=== PATIENT | male | born 1970 | race Caucasian/White ===

== ENCOUNTER → 2017-01-15 | Outpatient (CLI) | payer BC ==
[~2017-01-15] MED LIST: FISHOIL PO
[2017-01-15 13:32] LABS: ESTIMATED AVERAGE GLUCOSE 192 mg/dl; HA1C FLAG Normal (Normal)
[2017-01-15 14:03] LABS: BLOOD UREA NITROGEN 15 mg/dl (7-18); BUN/CREATININE RATIO 16.5 (10-20); CALCIUM 9.6 mg/dl (8.5-10.1); CARBON DIOXIDE 28 mmol/L (21-32); CHLORIDE 102 mmol/L (98-107); CHOLESTEROL 183 mg/dl (0-200); CHOLESTEROL/HDL RATIO 4.7; CREATININE 0.88 mg/dl (0.60-1.40); GLUCOSE 154 mg/dl (70-99); HDL CHOLESTEROL 39 mg/dl; LDL CHOLESTEROL CALCULATED 128 mg/dl; POTASSIUM 4.1 mmol/L (3.5-5.1); SODIUM 137 mmol/L (136-145); TRIGLYCERIDES 81 mg/dl (0-150); VERY LOW DENSITY LIPOPROT CALC 16 mg/dl
== END | disposition home or self-care (01) ==
LOC: C.LABPVFM 07:30
PROVIDERS: ATTEND Nurse Practitioner
DX: E11.9 Type 2 diabetes mellitus without complications (principal); E78.5 Hyperlipidemia, unspecified

== ENCOUNTER 2017-02-12 16:58 | Emergency (ER) | payer BC ==
[~2017-02-12] VITALS: Ht 175.3 cm; Wt 70.0 kg
[~2017-02-12 16:58] MED LIST changes: -FISHOIL PO; +METF-384 PO; +PRT/20 PO
[2017-02-12 17:02] VITALS: TEMP 36.6; Ht 175.3 cm; Wt 70.0 kg
[2017-02-12] MEDS ORDERED: ONDANSETRON INJ 2 MG/ML 2 ML VIAL IV STA (17:42)
[2017-02-12] MEDS ORDERED: OPTIRAY 320 IV PRN (17:45)
[2017-02-12 18:06] LABS: BASO % 0.4 %; HEMATOCRIT 40.8 % (42-52); IG% 0.2 %; LYMPH ABS # 2.29 K/uL (1.2-3.4); MEAN CELL VOLUME 85.9 fL (80-100); MEAN CORPUSCULAR HEMOGLOBIN 29.9 pg (25-34); MEAN CORPUSCULAR HGB CONC 34.8 g/dl (32-36); MEAN PLATELET VOLUME 9.7 fL (7.4-10.4); MONO % 7.5 %; NEUT % 66.9 %; PLATELET COUNT 304 K/uL (130-400); RED BLOOD COUNT 4.75 M/uL (4.7-6.1); WHITE BLOOD COUNT 9.55 K/uL (4.8-10.8)
[2017-02-12 18:07] LABS: BASO ABS # 0.04 K/uL (0-0.2); COMPLETE YES
[2017-02-12 18:08] LABS: URINE APPEARANCE CLEAR (CLEAR); URINE BILIRUBIN NEG (NEG); URINE COLOR YELLOW; URINE NITRITE NEG (NEG); URINE SPECIFIC GRAVITY 1.025 (1.000-1.030); UROBILINOGEN NEG (NEG); ZZUR CULT IF INDIC CLEAN CATCH NO
--- NOTE | 2017-02-12 18:12 | EMERGENCY ROOM VISIT NOTE ---
History Report prepared by Man: Teodoro Pelaez Under the Supervision of: Dr. Smith Milton M.D. First contact with patient: 17:30 Chief Complaint: ABDOMINAL PAIN Stated Complaint: SEVERE ABDOMINAL PAIN Nursing Triage Summary: pt to the ED with c/o diffuse abd pain all the way to his back was seen here 2 wks ago with something similar + nausea pain hurts more with movement no urinary complaints History of Present Illness The patient is a 46 year old male who presents to the Emergency Room with complaints of intermittent abdominal pain beginning two weeks ago. The patient also complains of nausea and pain radiating into his back. He states that his pain is typically present for about three hours at a time and tends to come once every 2-3 days. Once his pain is present, it is worsened with exertion. The patient was seen in the ED two weeks ago for similar symptoms, was evaluated by a surgeon, and discharged home. He notes that he recently started taking half his normal dose of Metformin. He denies any diarrhea, fevers, or chills. The patient feels that his symptoms may be related to constipation though he had two bowel movements today. He has not noticed a correlation between his pain and eating. Source of History: patient Onset: Two weeks ago Position: abdomen Symptom Intensity: 3 hour long episodes Timing: intermittent Modifying Factors (Worsening): exertion (once present) Associated Symptoms: + nausea, + back pain, No fevers, No chills, No diarrhea Review of Systems See HPI for pertinent positives & negatives. A total of 10 systems reviewed and were otherwise negative. Past Medical & Surgical Medical Problems: (1) Diabetes Family History No pertinent family history stated. Social History Smoking Status: Never Smoker Alcohol Use: none Drug Use: none Marital Status: Occupation Status: employed Current/Historical Medications Scheduled Lisinopril (Lisinopril), 2.5 MG PO QAM Metformin Hcl (Glucophage), 500 MG PO BID Simvastatin (Zocor), 10 MG PO QAM Allergies Coded Allergies: No Known Allergies (Unverified , 01/30/17) Physical Exam Vital Signs Date Time Temp Pulse Resp B/P (MAP) Pulse Ox O2 Delivery O2 Flow Rate FiO2 02/12/17 18:49 62 16 115/73 98 Room Air 02/12/17 17:02 36.6 59 16 141/84 98 Physical Exam GENERAL: Patient is in no acute distress. HEENT: No acute trauma, normocephalic atraumatic, mucous membranes moist, no nasal congestion, no scleral icterus. NECK: No stridor, no adenopathy, no meningismus, trachea is midline. LUNGS: Clear to auscultation bilaterally, no wheeze, no rhonchi, breath sounds equal. HEART: Without murmurs gallops or rubs, regular rate and rhythm. ABDOMEN: Soft, moderately tender in the RLQ, bowel sounds positive, no hernias, no peritonitis. EXTREMITIES: No cyanosis or edema, full range of motion of all the joints without pain or difficulty, no signs for acute trauma. NEUROLOGIC: Oriented x 3, no acute motor or sensory deficits, no focal weakness. SKIN: No rash, no jaundice, no diaphoresis. Medical Decision & Procedures Laboratory Results 02/12/17 17:50 Red Blood Count 4.75, Mean Corpuscular Volume 85.9, Mean Corpuscular Hemoglobin 29.9, Mean Corpuscular Hemoglobin Concent 34.8, Mean Platelet Volume 9.7, Neutrophils (%) (Auto) 66.9, Lymphocytes (%) (Auto) 24.0, Monocytes (%) (Auto) 7.5, Eosinophils (%) (Auto) 1.0, Basophils (%) (Auto) 0.4, Neutrophils # (Auto) 6.38, Lymphocytes # (Auto) 2.29, Monocytes # (Auto) 0.72, Eosinophils # (Auto) 0.10, Basophils # (Auto) 0.04 02/12/17 17:50 Test 02/12/17 17:50 02/12/17 17:58 White Blood Count 9.55 K/uL (4.8-10.8) Red Blood Count 4.75 M/uL (4.7-6.1) Hemoglobin 14.2 g/dL (14.0-18.0) Hematocrit 40.8 % (42-52) Mean Corpuscular Volume 85.9 fL (80-100) Mean Corpuscular Hemoglobin 29.9 pg (25-34) Mean Corpuscular Hemoglobin Concent 34.8 g/dl (32-36) Platelet Count 304 K/uL (130-400) Mean Platelet Volume 9.7 fL (7.4-10.4) Neutrophils (%) (Auto) 66.9 % Lymphocytes (%) (Auto) 24.0 % Monocytes (%) (Auto) 7.5 % Eosinophils (%) (Auto) 1.0 % Basophils (%) (Auto) 0.4 % Neutrophils # (Auto) 6.38 K/uL (1.4-6.5) Lymphocytes # (Auto) 2.29 K/uL (1.2-3.4) Monocytes # (Auto) 0.72 K/uL (0.11-0.59) Eosinophils # (Auto) 0.10 K/uL (0-0.5) Basophils # (Auto) 0.04 K/uL (0-0.2) RDW Standard Deviation 39.6 fL (36.4-46.3) RDW Coefficient of Variation 12.5 % (11.5-14.5) Immature Granulocyte % (Auto) 0.2 % Immature Granulocyte # (Auto) 0.02 K/uL (0.00-0.02) Anion Gap 7.0 mmol/L (3-11) Est Creatinine Clear Calc Drug Dose 90.4 ml/min Estimated GFR () 103.4 Estimated GFR (Non- 89.2 BUN/Creatinine Ratio 14.7 (10-20) Calcium Level 9.4 mg/dl (8.5-10.1) Total Bilirubin 0.4 mg/dl (0.2-1) Aspartate Amino Transf (AST/SGOT) 11 U/L (15-37) Alanine Aminotransferase (ALT/SGPT) 23 U/L (12-78) Alkaline Phosphatase 50 U/L (45-117) Total Protein 7.7 gm/dl (6.4-8.2) Albumin 4.4 gm/dl (3.4-5.0) Globulin 3.3 gm/dl (2.5-4.0) Albumin/Globulin Ratio 1.4 (0.9-2) Lipase 178 U/L (73-393) Urine Color YELLOW Urine Appearance CLEAR (CLEAR) Urine pH 6.0 (4.5-7.5) Urine Specific [place] 1.025 (1.000-1.030) Urine Protein NEG (NEG) Urine Glucose (UA) 1+ (NEG) Urine Ketones NEG (NEG) Urine Occult Blood NEG (NEG) Urine Nitrite NEG (NEG) Urine Bilirubin NEG (NEG) Urine Urobilinogen NEG (NEG) Urine Leukocyte Esterase NEG (NEG) Laboratory results reviewed by me. ED Course 173: The patient was evaluated in room B4B. A complete history and physical exam was performed. 1741: Ordered Zofran Inj 4 mg IV. 2030: The patient was signed out to Dr. Albert at the change of shift pending CT results. Medical Decision The patient is a 46 year old male who presents to the ED with complaints of abdominal pain. Differential diagnoses considered include appendicitis, diverticulitis, abscess, hernia, UTI, viral illness, constipation, and colitis. There is no leukocytosis or concerning anemia. No significant electrolyte abnormality, kidney failure, hepatitis or pancreatitis. Urinalysis does not show infection. On exam, the patient is not febrile or toxic. He is tender in the right lower quadrant. I spoke immediately to the surgeon continuous towel roller. He recommended a repeat CT of the abdomen and pelvis. This was ordered and the results are pending. The patient was given IV Zofran for nausea so he could better tolerate his oral contrast. At this point, the CT results are pending, Dr. Antolin Albert has assumed care at the change of shift. Please see his notes for the final disposition and plan. Medication Reconcilliation Current Medication List: was personally reviewed by me Blood Pressure Screening Patient's blood pressure: Elevated blood pressure Blood pressure disposition: Elevated BP felt to be situational Consults Time Called: 1734 Consulting Physician: Dr. Yusuf -General Surgery Returned Call: 1740 Discussed the patient's case. Dr. Yusuf recommends ordering a repeat CT. Impression Primary Impression: RLQ abdominal pain Scribe Attestation The scribe's documentation has been prepared under my direction and personally reviewed by me in its entirety. I confirm that the note above accurately reflects all work, treatment, procedures, and medical decision making performed by me. Departure Information Dispostion Still a Patient (Signed out Dr. Albert) Referrals Isabel Becerril C.R.N.P (PCP) Patient Instructions My [facility]
[2017-02-12 18:15] LABS: MANUAL MICROSCOPIC REQUIRED? NO; REVIEW REQ? NO
[2017-02-12] MEDS ORDERED: METF500T PO (18:17)
[2017-02-12 18:35] LABS: BUN/CREATININE RATIO 14.7 (10-20); CALCIUM 9.4 mg/dl (8.5-10.1); POTASSIUM 4.1 mmol/L (3.5-5.1)
[2017-02-12 18:38] LABS: ALB/GLOB RATIO 1.4 (0.9-2)
--- NOTE | 2017-02-12 20:50 | DIAGNOSTIC IMAGING REPORT ---
ABD/PELVIS IV AND ORAL CONT CLINICAL HISTORY: 46 years-old Male presenting with abdominal pain, recent periappendiceal infiltration, concern for appendicitis. TECHNIQUE: Multidetector CT of the abdomen and pelvis was performed after the administration of oral and intravenous contrast. IV contrast: 120 mL of Optiray 320. A dose lowering technique was used consistent with the principles of ALARA (as low as reasonably achievable). COMPARISON: 01/30/2017. CT DOSE (mGy.cm): The estimated cumulative dose is 283.28 mGy.cm. FINDINGS: Booking Supervisor topogram: Unremarkable. Lung bases: Minimal dependent changes likely atelectasis. Normal heart size. No pericardial or pleural effusion. Liver: Normal morphology. No liver lesion. Patent hepatic vasculature. Biliary: No intrahepatic or extrahepatic biliary ductal dilatation. Normal gallbladder. Pancreas: Normal. Spleen: Normal. Adrenal glands: Normal. Kidneys and ureters: Subcentimeter hypodensity in the right kidney consistent with cyst. No hydronephrosis. No nephrolithiasis. Ureters normal. Bladder: Normal. Pelvic organs: Prostate and seminal vesicles normal. Bowel: Normal appendix. No bowel obstruction. Peritoneal cavity: No free fluid or intraperitoneal gas. Lymph nodes: No enlarged lymph nodes in the abdomen or pelvis. Vasculature: Aorta and IVC patent and normal in caliber. Abdominal wall: Small fat-containing umbilical hernia. Musculoskeletal: Normal. IMPRESSION: 1. No acute intra-abdominal pathology. No evidence of appendicitis. Electronically signed by: Tera Hyde M.D. 02/12/2017 8:49 PM Dictated Date/Time: 02/12/2017 8:43 PM
[2017-02-12] MEDS ORDERED: MAGNESIUM CITRATE 296 ML/BTL PO STA (21:23)
[2017-02-12] MEDS ORDERED: SIMV10TA2 PO (21:26)
[2017-02-12] MEDS ORDERED: LSN25 PO (21:26)
--- NOTE | 2017-02-12 21:29 | EMERGENCY ROOM VISIT NOTE ---
ED Visit Note First contact with patient: 21:26 Patient signed out to me at change of shift. History and physical verified by me. Patient is here for evaluation of appendix after an abnormal CAT scan approximate 2 weeks ago. Patient drank oral contrast. On my physical examination the patient is nontender has no rebound and no guarding. In addition the patient did not receive any pain medication. He is afebrile here in the emergency department and does not have an elevation in his white blood cell count. CAT scan of the abdomen pelvis does not show any acute process although I do feel that the patient has a very large stool ball in the right lower quadrant. For this reason I did recommend half bottle magnesium citrate to be repeated in 6 hours. I also recommended that the patient follow-up with gastroenterology if the pain is continuing. Patient and are in agreement with the treatment plan. Problem List Medical Problems: (1) Diabetes Status: Chronic Current/Historical Medications Scheduled Lisinopril (Lisinopril), 2.5 MG PO QAM Metformin Hcl (Glucophage), 500 MG PO BID Simvastatin (Zocor), 10 MG PO QAM Allergies Coded Allergies: No Known Allergies (Unverified , 01/30/17) Vital Signs Date Time Temp Pulse Resp B/P (MAP) Pulse Ox O2 Delivery O2 Flow Rate FiO2 02/12/17 20:18 75 16 124/76 98 Room Air 02/12/17 18:49 62 16 115/73 98 Room Air 02/12/17 17:02 36.6 59 16 141/84 98 Laboratory Results 02/12/17 17:50 Red Blood Count 4.75, Mean Corpuscular Volume 85.9, Mean Corpuscular Hemoglobin 29.9, Mean Corpuscular Hemoglobin Concent 34.8, Mean Platelet Volume 9.7, Neutrophils (%) (Auto) 66.9, Lymphocytes (%) (Auto) 24.0, Monocytes (%) (Auto) 7.5, Eosinophils (%) (Auto) 1.0, Basophils (%) (Auto) 0.4, Neutrophils # (Auto) 6.38, Lymphocytes # (Auto) 2.29, Monocytes # (Auto) 0.72, Eosinophils # (Auto) 0.10, Basophils # (Auto) 0.04 02/12/17 17:50 Test 02/12/17 17:50 02/12/17 17:58 White Blood Count 9.55 K/uL (4.8-10.8) Red Blood Count 4.75 M/uL (4.7-6.1) Hemoglobin 14.2 g/dL (14.0-18.0) Hematocrit 40.8 % (42-52) Mean Corpuscular Volume 85.9 fL (80-100) Mean Corpuscular Hemoglobin 29.9 pg (25-34) Mean Corpuscular Hemoglobin Concent 34.8 g/dl (32-36) Platelet Count 304 K/uL (130-400) Mean Platelet Volume 9.7 fL (7.4-10.4) Neutrophils (%) (Auto) 66.9 % Lymphocytes (%) (Auto) 24.0 % Monocytes (%) (Auto) 7.5 % Eosinophils (%) (Auto) 1.0 % Basophils (%) (Auto) 0.4 % Neutrophils # (Auto) 6.38 K/uL (1.4-6.5) Lymphocytes # (Auto) 2.29 K/uL (1.2-3.4) Monocytes # (Auto) 0.72 K/uL (0.11-0.59) Eosinophils # (Auto) 0.10 K/uL (0-0.5) Basophils # (Auto) 0.04 K/uL (0-0.2) RDW Standard Deviation 39.6 fL (36.4-46.3) RDW Coefficient of Variation 12.5 % (11.5-14.5) Immature Granulocyte % (Auto) 0.2 % Immature Granulocyte # (Auto) 0.02 K/uL (0.00-0.02) Anion Gap 7.0 mmol/L (3-11) Est Creatinine Clear Calc Drug Dose 90.4 ml/min Estimated GFR () 103.4 Estimated GFR (Non- 89.2 BUN/Creatinine Ratio 14.7 (10-20) Calcium Level 9.4 mg/dl (8.5-10.1) Total Bilirubin 0.4 mg/dl (0.2-1) Aspartate Amino Transf (AST/SGOT) 11 U/L (15-37) Alanine Aminotransferase (ALT/SGPT) 23 U/L (12-78) Alkaline Phosphatase 50 U/L (45-117) Total Protein 7.7 gm/dl (6.4-8.2) Albumin 4.4 gm/dl (3.4-5.0) Globulin 3.3 gm/dl (2.5-4.0) Albumin/Globulin Ratio 1.4 (0.9-2) Lipase 178 U/L (73-393) Urine Color YELLOW Urine Appearance CLEAR (CLEAR) Urine pH 6.0 (4.5-7.5) Urine Specific [place] 1.025 (1.000-1.030) Urine Protein NEG (NEG) Urine Glucose (UA) 1+ (NEG) Urine Ketones NEG (NEG) Urine Occult Blood NEG (NEG) Urine Nitrite NEG (NEG) Urine Bilirubin NEG (NEG) Urine Urobilinogen NEG (NEG) Urine Leukocyte Esterase NEG (NEG) Departure Information Impression Primary Impression: RLQ abdominal pain Dispostion Home / Self-Care Condition GOOD Referrals Isabel Becerril C.R.N.P (PCP) Misha Vasquez M.D. Forms Call Back Authorization, HOME CARE DOCUMENTATION FORM, School Instructions, Work Instructions, IMPORTANT VISIT INFORMATION Patient Instructions My [facility], ED Abdominal Pain Unkn Cause Additional Instructions Take 1/2 bottle of Mag Citrate Repeat second half in six hours Clear liquid diet next 48 hours Follow up with Dr Vasquez's office You have been examined and treated today on an emergency basis only. This is not a substitute for, or an effort to provide, complete comprehensive medical care. It is impossible to recognize and treat all injuries or illnesses in a single emergency department visit. It is therefore important that you follow up closely with Dr Becerril. Call as soon as possible for an appointment. Thank you for your time and consideration. I look forward to speaking with you again soon. Please don't hesitate to call us if you have any questions.
[2017-02-12 21:37] VITALS: BP 116/76; PULSE 67; O2SAT 98
== END 2017-02-12 21:38 | disposition home or self-care (01) ==
LOC: C.EDB 16:58
DX: R10.31 Right lower quadrant pain (principal); R11.0 Nausea; E11.9 Type 2 diabetes mellitus without complications; Z79.84 Long term (current) use of oral hypoglycemic drugs